=== PATIENT | male | born 1930 | race Caucasian/White ===

== ENCOUNTER → 2017-11-07 | Day surgery (SDC) | payer MEDICARE ==
[~2017-11-07] VITALS: Ht 165.1 cm; Wt 59.0 kg
[~2017-11-07] MED LIST: B12,B-12,B 12500 MC1 PO; COUMADIN PO; COUMADIN3 M1 PO; Coumadin3 MG PO; FEOSOL325 MG PO; LISINOPRIL5 MG PO; SIMVASTATIN10 MG PO; TOPROL XL25 MG PO
--- NOTE | ~2017-11-07 | O ---
[place], [place] OPERATIVE NOTE NAME: [id number] UNIT #: [id number] ROOM: DOCTOR: MIKE COMBS MD BIRTHDATE: [birth year] DOS: 11/07/2017 PREOPERATIVE DIAGNOSIS: Cataract, left eye. POSTOPERATIVE DIAGNOSIS: Cataract, left eye. OPERATION: Extracapsular cataract extraction by phacoemulsification with posterior chamber intraocular lens implantation, left eye. ANESTHESIA: Monitored standby. OPERATIVE FINDINGS AND PROCEDURE: 2% Xylocaine topical anesthetic gel was applied to the eye in the preop area. The patient was taken to the operating room and prepped and draped in the standard fashion for sterile intraocular surgery. A time out procedure was performed verifying correct patient, correct site and corrects lens with Bg Combs M.D. The operating microscope was swung into position and the lid speculum was inserted. Using a Mandy paracentesis blade, a paracentesis was made through clear cornea. Viscoelastic was used to fill the anterior chamber. Using a metal keratome a 2.4 mm self-sealing clear corneal cataract incision was made temporally at the limbus. Using a pre-bent 25 gauge cystotome needle, a standard continuous curvilinear capsulorrhexis was performed. The anterior capsule was removed with forceps. The lens nucleus was hydrodissected and phacoemulsified in the posterior chamber. Cortical material was removed with the irrigation aspiration hand piece and the posterior capsule was then polished with a curet under irrigation. The posterior chamber and capsular bag were filled with viscoelastic. A posterior chamber intraocular lens manufactured by: Ernie, Model #[id number], and 24.5 diopters in strength were then inserted into the posterior chamber and within the capsular bag using the lens cartridge and injector system. Viscoelastic was removed using the irrigation aspiration handpiece. The anterior chamber was filled with balanced salt solution through the paracentesis. Both the paracentesis site and cataract incisions were hydrated with BSS and verified to be water-tight and self-sealing. Cefuroxime 1 mg/0.1 mL was injected into the anterior chamber through the paracentesis site. The incision checked to be water-tight using a Weck-Brina sponge. The integrity of the cataract wound and ocular tension were checked. Lid speculum and drapes were removed. The patient was transferred from the operating room to the recovery room in satisfactory condition. [place], [place] OPERATIVE NOTE NAME: ANNA DOLL UNIT #: [id number] ROOM: DOCTOR: MIKE COMBS MD BIRTHDATE: [birth year] MIKE COMBS MD CM:OPRECORD:OPERATIVE NOTE [id number] MIKE COMBS MD 11/07/17 1307 interface
[2017-11-07 11:34] VITALS: BP 130/60
[2017-11-07 12:39] VITALS: BP 111/48
[2017-11-07 12:54] VITALS: BP 131/52
[2017-11-07 13:09] VITALS: BP 109/66
== END | disposition home or self-care (01) ==
LOC: SDC 11-05 09:30
DX: H25.812 Combined forms of age-related cataract, left eye (principal); I10 Essential (primary) hypertension; E78.00 Pure hypercholesterolemia, unspecified; I25.2 Old myocardial infarction; D64.9 Anemia, unspecified; Z95.5 Presence of coronary angioplasty implant and graft; Z86.73 Personal history of transient ischemic attack (TIA), and cerebral infarction without residual deficits; Z79.899 Other long term (current) drug therapy; Z79.01 Long term (current) use of anticoagulants; Z87.442 Personal history of urinary calculi; Z98.890 Other specified postprocedural states

== ENCOUNTER → 2017-11-28 | Day surgery (SDC) | payer MEDICARE ==
--- NOTE | ~2017-11-28 | O ---
[place], [place] OPERATIVE NOTE [id number] #: [id number] ROOM: DOCTOR: VIET COMBS MD BIRTHDATE: [birth year] DOS: 11/28/2017 PREOPERATIVE DIAGNOSIS: Cataract, right eye. POSTOPERATIVE DIAGNOSIS: Cataract, right eye. OPERATION: Extracapsular cataract extraction by phacoemulsification with posterior chamber intraocular lens implantation, right eye. ANESTHESIA: Monitored standby. OPERATIVE FINDINGS AND PROCEDURE: A 2% Xylocaine topical anesthetic gel was applied to the eye in the preop area. The patient was taken to the operating room and prepped and draped in the standard fashion for sterile intraocular surgery. A time out procedure was performed verifying correct patient, correct site and corrects lens with Viet Combs M.D. The operating microscope was swung into position and the lid speculum was inserted. Using a Mandy paracentesis blade, a paracentesis was made through clear cornea. Viscoelastic was used to fill the anterior chamber. Using a metal keratome a 2.4 mm self-sealing clear corneal cataract incision was made temporally at the limbus. Using a pre-bent 25 gauge cystotome needle, a standard continuous curvilinear capsulorrhexis was performed. The anterior capsule was removed with forceps. The lens nucleus was hydrodissected and phacoemulsified in the posterior chamber. Cortical material was removed with the irrigation aspiration hand piece and the posterior capsule was then polished with a curet under irrigation. The posterior chamber and capsular bag were filled with viscoelastic. A posterior chamber intraocular lens manufactured by: Ernie, Model #[id number], and 24.5 diopters in strength were then inserted into the posterior chamber and within the capsular bag using the lens cartridge and injector system. Viscoelastic was removed using the irrigation aspiration handpiece. The anterior chamber was filled with balanced salt solution through the paracentesis. Both the paracentesis site and cataract incisions were hydrated with BSS and verified to be water-tight and self-sealing. Cefuroxime 1 mg/0.1 mL was injected into the anterior chamber through the paracentesis site. The incision checked to be water-tight using a Weck-Brina sponge. The integrity of the cataract wound and ocular tension were checked. Lid speculum and drapes were removed. The patient was transferred from the operating room to the recovery room in satisfactory condition. [place], [place] OPERATIVE NOTE NAME: ANNA DOLL UNIT #: [id number] ROOM: DOCTOR: VIET COMBS MD BIRTHDATE: [birth year] VIET COMBS MD CM:OPRECORD:OPERATIVE NOTE [id number] [id number] VIET COMBS MD 11/28/17 1622 interface
[2017-11-28 11:50] VITALS: BP 116/44
[2017-11-28 13:28] VITALS: BP 134/72
[2017-11-28 13:43] VITALS: BP 135/63
[2017-11-28 13:58] VITALS: BP 131/86
== END | disposition home or self-care (01) ==
LOC: SDC 11-23 13:15
DX: H25.811 Combined forms of age-related cataract, right eye (principal); I10 Essential (primary) hypertension; I25.10 Atherosclerotic heart disease of native coronary artery without angina pectoris; I25.2 Old myocardial infarction; E78.00 Pure hypercholesterolemia, unspecified; D64.9 Anemia, unspecified; Z95.5 Presence of coronary angioplasty implant and graft; Z79.01 Long term (current) use of anticoagulants; Z79.899 Other long term (current) drug therapy; Z87.442 Personal history of urinary calculi; Z86.73 Personal history of transient ischemic attack (TIA), and cerebral infarction without residual deficits

== ENCOUNTER 2019-02-17 14:05 | Inpatient (IN) | payer MEDICARE ==
[~2019-02-17] VITALS: Ht 165.1 cm; Wt 55.9 kg
[2019-02-17 14:07] VITALS: BP 96/62
[2019-02-17 14:28] VITALS: BP 110/50
[2019-02-17 14:45] LABS: BASO % 0.6 % (0.0-1.0); EOS # 0.2 10*3/uL (0.0-0.4); HEMATOCRIT 29.8 % (42.0-52.0); HEMOGLOBIN 9.9 g/dl (14.0-18.0); LYMPH # 1.2 10*3/uL (1.3-4.4); LYMPH % 16.5 % (27.0-41.0); MEAN CORPUSCULAR HGB 30.6 pg (27.0-31.0); MEAN CORPUSCULAR HGB CONC 33.2 g/dl (33.0-37.0); MEAN PLATELET VOLUME 10.7 fl (9.6-12.3); MONO # 0.4 10*3/uL (0.1-1.0); MONO % 6.2 % (3.0-9.0); NEUT # 5.1 10*3/uL (2.3-7.9); NEUT % 73.1 % (47.0-73.0); PLATELET COUNT AUTOMATED 135 10*3/uL (130-400); RED BLOOD COUNT 3.24 10*6/uL (4.50-5.90); RED CELL DISTRI WIDTH 12.4 % (0-14.5)
[2019-02-17 15:07] LABS: INTERNATIONAL NORM RATIO 1.1 (2.0-3.5)
[2019-02-17 15:13] LABS: ALBUMIN 2.5 gm/dl (3.1-4.5); CREATININE 1.43 mg/dL (0.70-1.30); POTASSIUM 3.6 mmol/L (3.5-5.1); TOTAL PROTEIN 6.2 gm/dL (6.4-8.2)
[2019-02-17 16:00] VITALS: BP 122/58
--- NOTE | 2019-02-17 16:00 | NUR ---
FLUIDS STARTED BY OTHER RN, SANTIAGO. VERBAL ORDER TO GIVE A LITER BOLUS INSTEAD OF 125/HR PER DAREN MOORE.
--- NOTE | 2019-02-17 16:29 | NUR ---
PHOTO TAKEN OF ANTERIOR TRUNK AND POSTERIOR TRUNK. PT HAS MULTIPLE AREAS OF BLISTERED RASH... PHOTOS TAKEN.
--- NOTE | 2019-02-17 17:00 | NUR ---
PER DR. OLVERA AND THE PHYSICIAN HE SPOKE TO... RECOMMENDED TO WEAR GLOVES AND PLACE PATIENT IN NEGATIVE PRESSURE ROOM... NO OTHER ISOLATION PRECAUTIONS GIVEN OR RECOMMENDED.
--- NOTE | 2019-02-17 17:21 | NUR ---
REPORT TO ARMANDO LUTZ AT THIS TIME. PATIENT IS STABLE AND READY FOR ADMISSION/.
--- NOTE | 2019-02-17 17:30 | NUR ---
Time: 1729 A 88 year old MALE admitted to under services of RUSTY DON DO, Pt. arrived via wheel chair from ER. Chief complaint: BOLIVAR ACKERMAN
[2019-02-17] MEDS ORDERED: NORVASC5 MG PO (19:16)
[2019-02-17] MEDS ORDERED: LISINOPRIL2.5 MG PO (19:16)
[2019-02-17] MEDS ORDERED: FLOMAX0.4 MG PO (19:17)
[2019-02-17] MEDS ORDERED: CIPRO500 MG PO (19:18)
--- NOTE | 2019-02-17 19:39 | NUR ---
CALLED ANSWERING SERVICE FOR CONSULT.
--- NOTE | 2019-02-17 19:46 | NUR ---
NOTIFIED [facility] REC IS UP TO DATE.
[2019-02-17 20:00] VITALS: BP 133/64
[2019-02-18] VITALS: BP 138/60
[2019-02-18 00:50] LABS: BILIRUBIN NEGATIVE (NEGATIVE); BLOOD 3+ (NEGATIVE); CLARITY CLEAR (CLEAR); COLOR YELLOW (YELLOW); GLUCOSE NEGATIVE (NEGATIVE); KETONE NEGATIVE (NEGATIVE); LEUKO ESTERASE 1+ (NEGATIVE); NITRITE NEGATIVE (NEGATIVE); SPECIFIC GRAVITY 1.015 (1.005-1.030); UROBILINOGEN 0.2 E.U./dl (0.2-1.0)
[2019-02-18 01:04] LABS: RBC 21-30 rbc/hpf (0-2)
[2019-02-18 06:46] LABS: BASO # 0.1 10*3/uL (0.0-0.1); BASO % 0.7 % (0.0-1.0); EOS # 0.4 10*3/uL (0.0-0.4); EOS % 6.2 % (1.0-4.0); HEMATOCRIT 27.3 % (42.0-52.0); LYMPH # 1.5 10*3/uL (1.3-4.4); LYMPH % 20.6 % (27.0-41.0); MEAN CELL VOLUME 92.2 fl (80.0-94.0); MEAN CORPUSCULAR HGB 30.4 pg (27.0-31.0); MEAN PLATELET VOLUME 11.4 fl (9.6-12.3); MONO # 0.5 10*3/uL (0.1-1.0); MONO % 7.6 % (3.0-9.0); NEUT # 4.5 10*3/uL (2.3-7.9); NEUT % 64.1 % (47.0-73.0); PLATELET COUNT AUTOMATED 138 10*3/uL (130-400); RED BLOOD COUNT 2.96 10*6/uL (4.50-5.90); RED CELL DISTRI WIDTH 12.4 % (0-14.5); WHITE BLOOD COUNT 7.1 10*3/uL (4.8-10.8)
[2019-02-18 06:48] LABS: BUN 16 mg/dl (7-24); CHLORIDE 109 mmol/L (98-107); CREATININE 1.24 mg/dL (0.70-1.30); POTASSIUM 3.7 mmol/L (3.5-5.1); SODIUM 138 mmol/L (136-145)
--- NOTE | 2019-02-18 07:26 | NUR ---
ANNA DOLL [id number] Please refer to the physician's history and physical for past medical history, comorbid conditions, and allergies. Diagnosis: DISSEMINATED HERPESVIRAL DISEASE Alejo Score: 21,LOW OR NO RISK WOUND DESCRIPTIONS: Patient has several red areas with multiple papules yellow in color within the red areas. No drainage at time of assessment. Very tender to touch states it progessing since admission. #1 Right rib posterior measuring 3.5cm x 5.0cm x <0.1cm, #2 right rib anterior measuring 2.5cm x 3.5cm x <0.1cm, #3 right abdomen measuring 2.0cm x 3.0cm x <0.1cm, #4 right upper chest measuring 3.0cm x 3.0cm x <0.1cm, #5 midsternal 2.5cm x 1.5cm x <0.1cm, #6 right chest measuring 1.0cm x 3.0cm x <0.1cm, #7 left upper chest measuring 2.0cm x 2.0cm x <0.1cm, #8 left rib measuring 1.0cm x 4.5cm x <0.1cm, #10 back of left shoulder measuring 2.5cm x 4.0cm x <0.1cm, #11 middle back measuring 3.0cm x 3.0cm x <0.1cm, #12 left shoulder measuring 8.5cm x 2.0cm x <0.1cm, #13 right clavicle measuring 4.0cm x 3.5cm x <0.1cm, #14 left clavicle measuring 3.0cm x 2.5cm x <0.1cm, #15 left chin measuring 4.5cm x 2.0cm x <0.1cm, #16 left corner of mouth measuring 0.5cm x 1.0cm x <0.1cm, #17 middle of bottom lip measuring 1.5cm x 2.0cm x <0.1cm, #18 right cornor of mouth measuring 0.5cm x 1.0cm x <0.1cm, #19 bridge of nose measuring 1.0cm x 1.5cm x <0.1cm and #20 inside of left ear measuring 1.5cm x 1.0cm x <0.1cm. Wound Number: 9 Location of the wound: left inner thigh Thickness: Partial Size: 0.5cm x 1.5cm x 0.1cm Tunneling: none Undermining: none Sinus Tract: none Presence of Exudate: Serous Amount: Light Color: Red Odor: None Periwound Skin Appearance: Normal Wound edges: approximated Pain (associated with wound): none at time of assessment How does patient state this happened? pt stated this was from where the had the catheter attached to his leg in the previous hospital. Surface the patient is resting on: Isoflex SKIN PREVENTION RECOMMENDATION: 1. Pressure redistribution support surface as appropriate 2. Elevate heels 3. Remove boots/TEDS every shift and reapply 4. Head of bed 30 degrees as tolerated 5. Assess nutrition and hydration 6. Manage moisture 7. Avoid the use of containment devices while in bed 8. Use absorptive products on surfaces limit layers of linens on bed 9. Turn and reposition every 1-2 hours in bed and every 1 hour in chair as tolerated 10. Weight shifts every 15 minutes while up in chair 11. Offloading with pillows or device to keep heels elevated off bed 12. Monitor skin at least every shift 13. Inspect under medical devices twice a day WOUND TREATMENT RECOMMENDATIONS: Partial thickness guidelines: Cleanse left inner thigh with nss and apply sureprep around the wound hydrogel to wound bed and cover with optifoam gentle. ID is already on consult for rash.
--- NOTE | 2019-02-18 07:43 | NUR ---
ANNA DOLL [id number] Please refer to the physician's history and physical for past medical history, comorbid conditions, and allergies. Diagnosis: DISSEMINATED HERPESVIRAL DISEASE Alejo Score: 21,LOW OR NO RISK WOUND DESCRIPTIONS: Patient has several red areas with yellow papules noted to several areas over body. Patient is complaining of pain at time of assessment. No drainage noted at time of assessment. #1 right rib posterior measuring 3.5cm x 5.0cm x <0.1cm, #2 right rib anterior 2.5cm x 3.5cm x <0.1cm, #3 right abdomen measuring 2.0cm x 3.0cm x <0.1cm, #4 right upper chest measuring 3.0cm x 3.0cm x <0.1cm, #5 midsternal measuring 2.5cm x 1.5cm x <0.1cm, #6 right chest measuring 1.0cm x 3.0cm x <0.1cm, #7 left upper chest measuring 2.0cm x 2.0cm x <0.1cm, #8 left rib measuring 1.0cm x 4.5cm x <0.1cm, #10 back of left shoulder measuring 2.5cm x 4.0cm x <0.1cm, #11 middle back measuring 3.0cm x 3.0cm x <0.1cm, #12 left shoulder measuring 8.5cm x 2.0cm x <0.1cm, #13 right clavicle measuring 4.0cm x 3.5cm x <0.1cm, #14 left clavicle measuring 3.0cm x 2.5cm x <0.1cm, #15 left chin measuring 4.5cm x 2.0cm x <0.1cm, #16 left corner of mouth measuring 0.5cm x 1.0cm x <0.1cm, #17 middle of bottom lip measuring 1.5cm x 2.0cm x <0.1cm, #18 right corner of mouth measuring 0.5cm x 1.0cm x <0.1cm, #19 bridge of nose measuring 1.0cm x 1.5cm x <0.1cm, #20 inside of left ear measuring 1.5cm x 1.0cm x <0.1cm. Wound Number: 9 Location of the wound: left inner thigh Thickness: Partial Size: 0.5cm x 1.5cm x 0.1cm Tunneling: none Undermining: none Sinus Tract: none Presence of Exudate: Serous Amount: Light Color: Red Odor: None Periwound Skin Appearance: Normal Wound edges: approximated Pain (associated with wound): none at time of assessment How does patient state this happened? pt stated this happened during his last hospital stay from the catheter. Surface the patient is resting on: Isoflex SKIN PREVENTION RECOMMENDATION: 1. Pressure redistribution support surface as appropriate 2. Elevate heels 3. Remove boots/TEDS every shift and reapply 4. Head of bed 30 degrees as tolerated 5. Assess nutrition and hydration 6. Manage moisture 7. Avoid the use of containment devices while in bed 8. Use absorptive products on surfaces limit layers of linens on bed 9. Turn and reposition every 1-2 hours in bed and every 1 hour in chair as tolerated 10. Weight shifts every 15 minutes while up in chair 11. Offloading with pillows or device to keep heels elevated off bed 12. Monitor skin at least every shift 13. Inspect under medical devices twice a day WOUND TREATMENT RECOMMENDATIONS: Id is already on consult for rash Partial thickness guidelines: Cleanse left inner thigh with nss and apply sureprep around the wound hydrogel to wound bed and cover with optifoam gentle.
[2019-02-18 08:00] VITALS: BP 130/58
--- NOTE | 2019-02-18 08:05 | NUR ---
Dr. Mcclain notified of wound care recommendations.
--- NOTE | 2019-02-18 08:45 | NUR ---
Nursing screen and occupational therapy referral received. Thank you. Abbi Castro OTR/l
[2019-02-18 10:06] LABS: INTERNATIONAL NORM RATIO 1.2 (2.0-3.5)
[2019-02-18 12:00] VITALS: BP 137/65
--- NOTE | 2019-02-18 13:36 | NUR ---
PHYSICAL THERAPY Physical therapy evaluation attempted however inadequate PPE equipment available. Will attempt tomorrow. Thank you Peg Willis, PT, DPT
--- NOTE | 2019-02-18 14:21 | NUR ---
Sales Floor Manager in to talk to patient. Patient states lives at home with . There are few steps in the home. Physician: quiana [facility] [place] [facility]: none Patient's level of ADLs: MINIMAL ASSIST Patient has working utilities: all working DME: none Follow-up physician's appointment after d/c: will be made by hospsitalist nurse director upon discharge Does patient want to access PORTAL?: no Discharge plan discussed with patient, he lives at home with , states he gets aroun fine, states at this time he would like to return home, denies any needs at this time, case mangaement will follow. JAIMIE MCMILLAN
--- NOTE | 2019-02-18 15:20 | NUR ---
Occupational Therapy evaluation to be completed 02/19/19. OTR received clarification on respiratory isolation precautions equipment and will proceed 02/19/19. Abbi Castro OTR/Nestor
[2019-02-18 16:00] VITALS: BP 124/63
[2019-02-18 20:00] VITALS: BP 124/62
[2019-02-19] VITALS: BP 131/62
[2019-02-19 04:00] VITALS: BP 141/78
[2019-02-19 06:31] LABS: PHOSPHOROUS 3.2 mg/dL (2.5-4.9)
[2019-02-19 06:34] LABS: INTERNATIONAL NORM RATIO 1.1 (2.0-3.5)
[2019-02-19 08:00] VITALS: BP 118/61
--- NOTE | 2019-02-19 09:19 | NUR ---
[facility] CALLED FOR [facility] SPOKE WITH STAFF. MED LIST TO BE FAXED OVER.
[2019-02-19] MEDS ORDERED: B-12500 MC1 PO (09:37)
[2019-02-19] MEDS ORDERED: ZANTAC 150150 MG PO (09:38)
--- NOTE | 2019-02-19 09:46 | NUR ---
[facility] VERIF[facility] WITH [facility] AND [facility]. DR AGUILAR NOTIFIED.
--- NOTE | 2019-02-19 09:58 | NUR ---
WENT TO DOCUMENT ON NEGATIVE AIR PRESSURE READING AND NOTICED OTOOLE DIRECTION IS TO NEUTRAL NOT NEGATIVE. SPOKE WITH CONSTANCE IRVIN, SHE STATES PT DOES NOT NEED TO BE IN NEGATIVE AIR PRESSURE.
--- NOTE | 2019-02-19 10:55 | NUR ---
DR VELIZ CONSULT CALLED TO THE OFFICE
--- NOTE | 2019-02-19 11:15 | NUR ---
Occupational Therapy evaluation completed on 4 with full eval to follow. Precautions include IV UE, no dizziness per patient, low complexity level 80572. Per chart review, patient was not taking her medications correctly and she may benefit from longterm for medication management in the home upon d/c. No further OT indicated.Recommend return home alone at prior level of functioning. Thank you. Abbi Castro OTR/L
--- NOTE | 2019-02-19 11:25 | NUR ---
Occupational Therapy evaluation completed on 4 with patient in respiratory isolation for disseminated shingles. Precautions include respiratory isolation, IV UE, low complexity level 40178. Recommend return home alone at prior level of independence. Patient uses no assistive device in the home. Recommend no further OT at this time or upon d/c. Thank you. Abbi Castro OTr/L
[2019-02-19 12:00] VITALS: BP 142/56
--- NOTE | 2019-02-19 13:55 | NUR ---
PHYSICAL THERAPY Physical therapy evaluation completed, 4E. Full details to follow. Low complexity determined after chart review/evaluation, [address]. Pt is independent with ambulation and ADLs without an AD; Does not require any PT needs. Recommending home with no PT needs. Thank you Peg Willis, PT, DPT
[2019-02-19 16:00] VITALS: BP 116/54
--- NOTE | 2019-02-19 16:58 | NUR ---
NASIR CALLED AND NOTIFIED OF -0.003 PRESSURE. STAFF UP TO LOOK AT IT. STATES IT'S OK.
[2019-02-19 20:00] VITALS: BP 101/61
--- NOTE | 2019-02-19 20:50 | NUR ---
Neurological: AAOX3 Respiratory: ROOM AIR, NONLABORED Breath sounds: CLEAR T/O Cough: NONE PER ASSESSMENT Cardiovascular: HRR, DENIES CP/PRESSURE, NO EDEMA, PPP Gastrointestinal: NORMOACTIVE X4 QUADS, DENIES N/V/D/C, SOFT, NONTENDER, NONDISTENDED LAST BM 02/19. Genito/Urinary: DENIES DYSURIA Musculoskeketal: AMBULATORY, MULTIPLE WOUNDS D/T CONDITION PATIENT IS RESTING IN BED. ASSESSMENT IS COMPLETE WITH NO C/O OR S/S OF DISTRESS NOTED. BED IS LOW, LOCKED, AND CALL LIGHT IS WITHIN REACH. 2200 MEDICATIONS GIVEN AT THIS TIME AND PATIENT TOLERATED WELL. JOAQUÍN COMBS A
[2019-02-20] VITALS: BP 110/64
--- NOTE | 2019-02-20 | NUR ---
PATIENT IS WATCHING TV WITH NO C/O OR S/S OF DISTRESS NOTED AT THIS TIME. CALL LIGHT IS WITHIN REACH.
--- NOTE | 2019-02-20 02:00 | NUR ---
FRESH ICEWATER PROVIDED TO PATIENT. NO S/S OF DISTRESS NOTED AT THIS TIME.
--- NOTE | 2019-02-20 06:15 | NUR ---
WARM BLANKETS AND FRESH ICE WATER PROVIDED TO PATIENT AT THIS TIME. NO S/S OF DISTRESS NOTED.
[2019-02-20 08:00] VITALS: BP 142/68
[2019-02-20 08:18] LABS: INTERNATIONAL NORM RATIO 1.3 (2.0-3.5)
[2019-02-20 12:00] VITALS: BP 112/57
[2019-02-20 16:00] VITALS: BP 112/57
[2019-02-20 20:00] VITALS: BP 113/56
--- NOTE | 2019-02-20 23:30 | NUR ---
Neurological: AAOX3 Respiratory: ROOM AIR, NONLABORED Breath sounds: CLEAR T/O Cough: NONE PER ASSESSMENT Cardiovascular: DENIES CP/PRESSURE, NO EDEMA, PPP Gastrointestinal: NORMOACTIVE X4 QUADS, DENIES N/V/D/C, SOFT, NONTENDER, NONDISTENDED Genito/Urinary: DENIES DYSURIA Musculoskeketal: AMBULATORY, GAIT STEADY, ALL OVER RASH PATIENT IS RESTING IN BED WATCHING TV. ASSESSMENT IS COMPLETE WITH NO S/S OF DISTRESS OR C/O NOTED AT THIS TIME. BED IS LOW, LOCKED, AND CALL LIGHT IS WITHIN REACH. JOAQUÍN COMBS
[2019-02-21] VITALS: BP 111/53
--- NOTE | 2019-02-21 01:53 | NUR ---
24 HR chart check completed.
--- NOTE | 2019-02-21 05:30 | NUR ---
PATIENT IS SITTING IN CHAIR WITH NO C/O OR S/S OF DISTRESS NOTED AT THIS TIME. CALL LIGHT IS WITHIN REACH.
[2019-02-21 07:24] LABS: INTERNATIONAL NORM RATIO 1.5 (2.0-3.5)
--- NOTE | 2019-02-21 07:30 | NUR ---
PT AWAKE. REPORT RECEIVED FROM JOAQUÍN ROBERTS. NO PT QUESTIONS/CONCERNS AT THIS TIME. CALL RODRIGUEZ IN REACH
[2019-02-21 08:00] VITALS: BP 120/53
--- NOTE | 2019-02-21 09:10 | NUR ---
PT AWAKE. ASSESSMENT COMPLETE. ROUTINE MEDICATIONS WELL TOLERATED. NO PT QUESTIONS/CONCERNS AT THIS TIME
[2019-02-21 12:00] VITALS: BP 114/50
--- NOTE | 2019-02-21 13:00 | NUR ---
PT AWAKE. EATING LUNCH. FAMILY VISITING AT THE BEDSIDE.
--- NOTE | 2019-02-21 13:43 | NUR ---
case management talks with patient, he states he will return home when medically stable and denies any home needs, case management will follow
[2019-02-21 16:00] VITALS: BP 126/64
[2019-02-21 16:29] LABS: CREATININE 1.38 mg/dL (0.70-1.30); POTASSIUM 4.3 mmol/L (3.5-5.1)
[2019-02-21 20:00] VITALS: BP 104/60
--- NOTE | 2019-02-21 22:00 | NUR ---
DOUG HELD PER NURSING JUDGEMENT FOR BP OF 104/60
[2019-02-22] VITALS: BP 120/49
--- NOTE | 2019-02-22 01:08 | NUR ---
24 HR chart check completed.
[2019-02-22 06:47] LABS: BUN 21 mg/dl (7-24); CHLORIDE 108 mmol/L (98-107); SODIUM 138 mmol/L (136-145)
[2019-02-22 08:00] VITALS: BP 123/67
[2019-02-22 08:45] LABS: INTERNATIONAL NORM RATIO 1.9 (2.0-3.5)
[2019-02-22 12:00] VITALS: BP 101/42
[2019-02-22 16:00] VITALS: BP 108/59
[2019-02-22 20:00] VITALS: BP 106/59
--- NOTE | 2019-02-22 21:27 | NUR ---
HELD DOUG PER NURSING JUDGMENT FOR BP 106/59.
[2019-02-23] VITALS: BP 104/63
--- NOTE | 2019-02-23 02:20 | NUR ---
24 HOUR CHART CHECK COMPLETE.
--- NOTE | 2019-02-23 02:47 | NUR ---
Patient sleeping. Respirations relaxed and easy. Siderails up . [place] on. No signs of distress noted. Call light within reach. BOLIVAR BARKER
[2019-02-23 07:00] LABS: CREATININE 1.39 mg/dL (0.70-1.30); POTASSIUM 4.3 mmol/L (3.5-5.1)
[2019-02-23 08:00] VITALS: BP 147/64
--- NOTE | 2019-02-23 08:04 | NUR ---
PT RESTING IN BED. NO DISTRESS NOTED. WILL MONITOR
[2019-02-23] MEDS ORDERED: COUMADIN5 M2 PO (11:10)
[2019-02-23] MEDS ORDERED: K-PHOS500 MG PO (11:10)
[2019-02-23] MEDS ORDERED: Isordil20 MG PO (11:10)
[2019-02-23] MEDS ORDERED: APRESOLINE10 MG PO (11:10)
--- NOTE | 2019-02-23 11:10 | NUR ---
DR MONTAGUE CALLED REGARDING PT BEING BALE TO BE DC'D. DR MONTAGUE STATES THAT PT CAN GO IF PRESCRIPTION VALTREX IS ABLE TO BE FILLED TODAY DR ALAYNA MISHRA
[2019-02-23] MEDS ORDERED: VALACYCLOVIR H500 MG PO (11:11)
--- NOTE | 2019-02-23 13:55 | NUR ---
Discharge instructions reviewed with patient/family. Patient receptive and verbalizes understanding. Follow-up care arranged. Written instructions given to patient/family. QUEENIE RAINEY
--- NOTE | 2019-02-23 13:55 | NUR ---
PT REFUSED DC WOUND PHOTOS
== END 2019-02-23 14:20 | disposition home or self-care (01) | DRG 871 ==
LOC: ED 14:05 → EDHOLD 16:10 → 4E 16:10
PROVIDERS: Internal Medicine; Physician Assistant; Student in an Organized Health Care Education/Training Program; ADMIT Internal Medicine
DX: B00.7 Disseminated herpesviral disease (principal); E43 Unspecified severe protein-calorie malnutrition; I13.0 Hypertensive heart and chronic kidney disease with heart failure and stage 1 through stage 4 chronic kidney disease, or unspecified chronic kidney disease; I50.9 Heart failure, unspecified; D64.9 Anemia, unspecified; D72.810 Lymphocytopenia; E11.22 Type 2 diabetes mellitus with diabetic chronic kidney disease; B02.7 Disseminated zoster; E11.65 Type 2 diabetes mellitus with hyperglycemia; E87.8 Other disorders of electrolyte and fluid balance, not elsewhere classified; N18.3 Chronic kidney disease, stage 3 (moderate); I25.10 Atherosclerotic heart disease of native coronary artery without angina pectoris; Z82.49 Family history of ischemic heart disease and other diseases of the circulatory system; E78.5 Hyperlipidemia, unspecified; I25.2 Old myocardial infarction; Z86.73 Personal history of transient ischemic attack (TIA), and cerebral infarction without residual deficits; Z79.4 Long term (current) use of insulin; Z79.01 Long term (current) use of anticoagulants; Z68.21 Body mass index [BMI] 21.0-21.9, adult

== ENCOUNTER → 2019-02-26 | Outpatient (CLI) | payer MEDICARE ==
[~2019-02-26] MED LIST changes: +APRESOLINE10 MG PO; +B-12500 MC1 PO; +CIPRO500 MG PO; +COUMADIN5 M2 PO; +FLOMAX0.4 MG PO; +Isordil20 MG PO; +K-PHOS500 MG PO; +LISINOPRIL2.5 MG PO; +NORVASC5 MG PO; +VALACYCLOVIR H500 MG PO; +ZANTAC 150150 MG PO
[2019-02-26 12:48] LABS: INTERNATIONAL NORM RATIO 4.7 (2.0-3.5)
== END | disposition home or self-care (01) ==
LOC: LAB 10:27
PROVIDERS: Internal Medicine
DX: Z51.81 Encounter for therapeutic drug level monitoring (principal); R79.1 Abnormal coagulation profile

== ENCOUNTER → 2019-03-01 | Outpatient (CLI) | payer MEDICARE ==
[2019-03-01 06:23] LABS: INTERNATIONAL NORM RATIO 1.9 (2.0-3.5)
== END | disposition home or self-care (01) ==
LOC: LAB 05:13
PROVIDERS: Family Medicine
DX: I25.10 Atherosclerotic heart disease of native coronary artery without angina pectoris (principal)

== ENCOUNTER 2019-03-25 08:37 | Inpatient (IN) | payer OTHER ==
[~2019-03-25] VITALS: Ht 165.1 cm; Wt 58.3 kg
[2019-03-25 08:38] VITALS: BP 142/62
[2019-03-25 09:14] LABS: BASO % 0.5 % (0.0-1.0); EOS # 0.3 10*3/uL (0.0-0.4); EOS % 4.1 % (1.0-4.0); HEMOGLOBIN 9.7 g/dl (14.0-18.0); LYMPH # 1.6 10*3/uL (1.3-4.4); MEAN CELL VOLUME 95.5 fl (80.0-94.0); MEAN CORPUSCULAR HGB 30.9 pg (27.0-31.0); MEAN CORPUSCULAR HGB CONC 32.3 g/dl (33.0-37.0); MONO # 0.5 10*3/uL (0.1-1.0); MONO % 8.1 % (3.0-9.0); NEUT # 3.7 10*3/uL (2.3-7.9); NEUT % 60.8 % (47.0-73.0); PLATELET COUNT AUTOMATED 168 10*3/uL (130-400); RED BLOOD COUNT 3.14 10*6/uL (4.50-5.90); RED CELL DISTRI WIDTH 14.4 % (0-14.5); WHITE BLOOD COUNT 6.1 10*3/uL (4.8-10.8)
[2019-03-25 09:16] LABS: BILIRUBIN NEGATIVE (NEGATIVE); BLOOD 2+ (NEGATIVE); CLARITY CLOUDY (CLEAR); COLOR YELLOW (YELLOW); GLUCOSE NEGATIVE (NEGATIVE); KETONE NEGATIVE (NEGATIVE); LEUKO ESTERASE 2+ (NEGATIVE); NITRITE NEGATIVE (NEGATIVE); PH 5.5 (5.0-9.0); UROBILINOGEN 0.2 E.U./dl (0.2-1.0)
--- NOTE | 2019-03-25 09:19 | NUR ---
IONIZED CALCIUM CRITICAL AT 3.04 AND REGULAR IS STILL IN PROCESS.
[2019-03-25 09:27] LABS: ALBUMIN 3.1 gm/dl (3.1-4.5); CREATININE 1.81 mg/dL (0.70-1.30); POTASSIUM 3.8 mmol/L (3.5-5.1); TOTAL PROTEIN 6.4 gm/dL (6.4-8.2)
[2019-03-25 09:29] LABS: WBC TNTC wbc/hpf (0-5)
[2019-03-25 09:30] LABS: INTERNATIONAL NORM RATIO 2.3 (2.0-3.5)
[2019-03-25 09:33] LABS: BACTERIA 2+; RBC 21-30 rbc/hpf (0-2); YEAST 2+
--- NOTE | 2019-03-25 11:09 | NUR ---
I SPOKE TO HIS NIECE, EDY, WHO IS HIS POWER OF REFRIGERATOR CAR ICER. I EXPLAINED THAT HIS MAGNESIUM AND CALCIUM LEVELS WERE LOW AND IT WAS IMPORTANT THE PT BE ADMITTED TO HAVE FURTHER LABS DRAWN AND TO GET PROPER MEDICATION.
[2019-03-25 11:10] VITALS: BP 132/55
--- NOTE | 2019-03-25 11:50 | NUR ---
DR. BOURNE WAS NOTIFIED THAT PATIENT IS IN THE ROOM AND MED REC IS UP-TO-DATE. PATIENT CONDITION REVIEWED.
[2019-03-25 12:00] VITALS: BP 132/55
--- NOTE | 2019-03-25 12:29 | NUR ---
DR. STRAUSS NOTIFIED OF CONSULT. PATIENT CONDITION AND LAB RESULTS REVIEWED. ORDERS RECEIVED.
[2019-03-25 13:23] LABS: PTH INTACT 107.5 pg/mL (18.5-88.0); VITAMIN D, 25-HYDROXY 31.4 ng/mL (30-100)
[2019-03-25 16:00] VITALS: BP 131/72
--- NOTE | 2019-03-25 19:44 | NUR ---
PATIENT RESTING IN BED WITH NO NEEDS MADE. DENIES PAIN AT THIS TIME. BED IN LOWEST POSITION, CALL LIGHT IN REACH
[2019-03-25 20:00] VITALS: BP 136/67
[2019-03-26] VITALS: BP 139/67
[2019-03-26 06:21] LABS: ALBUMIN 2.9 gm/dl (3.1-4.5); POTASSIUM 4.1 mmol/L (3.5-5.1)
[2019-03-26 06:23] LABS: CREATININE 1.69 mg/dL (0.70-1.30); FREE T4 0.98 ng/dl (0.76-1.46); PHOSPHOROUS 3.3 mg/dL (2.5-4.9); TOTAL PROTEIN 6.5 gm/dL (6.4-8.2)
[2019-03-26 06:27] LABS: THYROID STIM HORMONE (HS) 1.47 uIU/ml (0.358-4.75)
[2019-03-26 06:31] LABS: BASO % 0.6 % (0.0-1.0); EOS # 0.4 10*3/uL (0.0-0.4); EOS % 5.9 % (1.0-4.0); HEMATOCRIT 30.3 % (42.0-52.0); LYMPH # 1.7 10*3/uL (1.3-4.4); LYMPH % 23.6 % (27.0-41.0); MEAN CELL VOLUME 93.8 fl (80.0-94.0); MEAN PLATELET VOLUME 12.2 fl (9.6-12.3); MONO # 0.5 10*3/uL (0.1-1.0); NEUT # 4.4 10*3/uL (2.3-7.9); NEUT % 62.6 % (47.0-73.0); PLATELET COUNT AUTOMATED 187 10*3/uL (130-400); RED BLOOD COUNT 3.23 10*6/uL (4.50-5.90); RED CELL DISTRI WIDTH 14.2 % (0-14.5)
--- NOTE | 2019-03-26 06:32 | NUR ---
NOTIFIED OF CALCIUM 6.8, UP FROM 6.4.
[2019-03-26 06:49] LABS: VITAMIN D, 25-HYDROXY 36.2 ng/mL (30-100)
--- NOTE | 2019-03-26 07:58 | NUR ---
PHYSICAL THERAPY Screen received 88 y/o M admitted with UTI/hypocalcemia from home, please consulut PT for evaluation if decline in function/ambulation, thank you. Clementina Garcia PT
--- NOTE | 2019-03-26 08:00 | NUR ---
Water Plant Pump Operator Supervisor in to talk to patient. Patient states lives at home alone with his family checking in on him. There are basement steps in the home. Physician: Dr. Esau Gan [facility]acy: [facility] [place] Home health services: none Patient's level of ADLs: INDEPENDENT Patient has working utilities: yes DME: none Follow-up physician's appointment after d/c: will be made by the hospitalist nurse director upon discharge Does patient want to access PORTAL?: no Discharge plan discussed with patient. He lives at home alone with his family checking in on him. He is independent in his ADLs and ambulation. Discussed home health care services and he denies any home needs at this time. When medically stable he will be discharged to home. He states his niece will provide transportation on discharge. UA +, UC + heavy GPC, on rocephin, Ca 6.8 up from 5.5. ERICKSON ZHANG
[2019-03-26 12:00] VITALS: BP 152/80
--- NOTE | 2019-03-26 12:05 | NUR ---
[facility]
--- NOTE | 2019-03-26 14:07 | NUR ---
PT RETURNED FROM RENAL US.
--- NOTE | 2019-03-26 15:07 | NUR ---
Nursing screen received and chart reviewed. Patient admitted for abnormal labs with a PMH including cAD, CHF, HLD, and TIA. If patient has a decline in ADLs or functional mobility/transfers, send OT referral. Thank you. Maria D Bennett OTR/L
[2019-03-26] MEDS ORDERED: Oscal,Oyster S500 MG PO (15:16)
[2019-03-26] MEDS ORDERED: LEVAQUIN500 M2 PO (15:20)
[2019-03-26 16:00] VITALS: BP 158/69
--- NOTE | 2019-03-26 16:26 | NUR ---
PT OFF FLOOR FOR CT AT THIS TIME.
--- NOTE | 2019-03-26 19:41 | NUR ---
Discharge instructions reviewed with patient/family. Patient receptive and verbalizes understanding. Follow-up care arranged. Written instructions given to patient/family. RITO WHITLOCK
== END 2019-03-26 19:41 | disposition home or self-care (01) | DRG 640 ==
LOC: ED 08:37 → EDHOLD 10:17 → 4E 10:17
PROVIDERS: Emergency Medicine; Internal Medicine; ADMIT Internal Medicine
DX: E83.51 Hypocalcemia (principal); N17.0 Acute kidney failure with tubular necrosis; N13.6 Pyonephrosis; I50.42 Chronic combined systolic (congestive) and diastolic (congestive) heart failure; E44.0 Moderate protein-calorie malnutrition; I13.0 Hypertensive heart and chronic kidney disease with heart failure and stage 1 through stage 4 chronic kidney disease, or unspecified chronic kidney disease; N40.0 Benign prostatic hyperplasia without lower urinary tract symptoms; D64.9 Anemia, unspecified; E83.42 Hypomagnesemia; R00.1 Bradycardia, unspecified; R73.9 Hyperglycemia, unspecified; E78.5 Hyperlipidemia, unspecified; I25.10 Atherosclerotic heart disease of native coronary artery without angina pectoris; N18.2 Chronic kidney disease, stage 2 (mild); E87.8 Other disorders of electrolyte and fluid balance, not elsewhere classified; Z87.442 Personal history of urinary calculi; I25.2 Old myocardial infarction; Z86.73 Personal history of transient ischemic attack (TIA), and cerebral infarction without residual deficits; Z95.5 Presence of coronary angioplasty implant and graft; Z82.49 Family history of ischemic heart disease and other diseases of the circulatory system; Z83.3 Family history of diabetes mellitus; Z79.899 Other long term (current) drug therapy; Z79.01 Long term (current) use of anticoagulants; Z68.21 Body mass index [BMI] 21.0-21.9, adult

== ENCOUNTER 2019-04-08 17:36 | Inpatient (IN) | payer MEDICARE ==
[~2019-04-08] VITALS: Ht 165.1 cm; Wt 56.0 kg
[2019-04-08 17:36] VITALS: BP 115/54
[~2019-04-08 17:36] MED LIST changes: +LEVAQUIN500 M2 PO; +Oscal,Oyster S500 MG PO
[2019-04-08 18:17] LABS: BASO % 0.6 % (0.0-1.0); EOS # 0.4 10*3/uL (0.0-0.4); EOS % 7.4 % (1.0-4.0); HEMATOCRIT 30.2 % (42.0-52.0); HEMOGLOBIN 9.6 g/dl (14.0-18.0); LYMPH # 1.4 10*3/uL (1.3-4.4); LYMPH % 28.8 % (27.0-41.0); MEAN CELL VOLUME 94.4 fl (80.0-94.0); MEAN CORPUSCULAR HGB CONC 31.8 g/dl (33.0-37.0); MEAN PLATELET VOLUME 9.8 fl (9.6-12.3); MONO # 0.4 10*3/uL (0.1-1.0); MONO % 8.1 % (3.0-9.0); NEUT # 2.6 10*3/uL (2.3-7.9); NEUT % 54.7 % (47.0-73.0); PLATELET COUNT AUTOMATED 232 10*3/uL (130-400); RED CELL DISTRI WIDTH 13.6 % (0-14.5); WHITE BLOOD COUNT 4.7 10*3/uL (4.8-10.8)
[2019-04-08 18:26] LABS: INTERNATIONAL NORM RATIO 2.6 (2.0-3.5)
[2019-04-08 18:35] LABS: ALBUMIN 3.1 gm/dl (3.1-4.5); ALKALINE PHOSPHATASE 96 U/L (45-117); BUN 37 mg/dl (7-24); CHLORIDE 108 mmol/L (98-107); CREATININE 2.39 mg/dL (0.70-1.30); POTASSIUM 5.3 mmol/L (3.5-5.1); SGOT/AST 27 IU/L (3-35); SGPT/ALT 33 U/L (12-78); SODIUM 138 mmol/L (136-145); TOTAL PROTEIN 6.8 gm/dL (6.4-8.2)
[2019-04-08 18:37] LABS: TROPONIN I < 0.015 ng/ml (<0.045)
[2019-04-08 18:55] LABS: BILIRUBIN NEGATIVE (NEGATIVE); BLOOD 1+ (NEGATIVE); CLARITY SL CLOUDY (CLEAR); COLOR YELLOW (YELLOW); GLUCOSE NEGATIVE (NEGATIVE); KETONE NEGATIVE (NEGATIVE); LEUKO ESTERASE 2+ (NEGATIVE); NITRITE NEGATIVE (NEGATIVE); UROBILINOGEN 0.2 E.U./dl (0.2-1.0)
[2019-04-08 19:04] LABS: BACTERIA 1+; WBC 41-50 wbc/hpf (0-5)
[2019-04-08 20:22] VITALS: BP 136/62
[2019-04-08 21:32] VITALS: BP 138/54
--- NOTE | 2019-04-08 21:32 | NUR ---
Time: 2131 A 88 year old MALE admitted to under services of ANTONIA GONZALEZ DO. Pt. arrived via wheel chair from ER. Chief complaint: ABNORMAL LABS. ANGELICA MEYER
--- NOTE | 2019-04-08 22:12 | NUR ---
PRESENT ON FLOOR. INFORMED HOME MEDS ARE VERIFIED
[2019-04-09] VITALS: BP 155/68
[2019-04-09 06:56] LABS: BASO % 0.5 % (0.0-1.0); EOS # 0.5 10*3/uL (0.0-0.4); EOS % 7.9 % (1.0-4.0); HEMATOCRIT 31.4 % (42.0-52.0); LYMPH % 33.4 % (27.0-41.0); MEAN CORPUSCULAR HGB 29.9 pg (27.0-31.0); MEAN CORPUSCULAR HGB CONC 31.8 g/dl (33.0-37.0); MEAN PLATELET VOLUME 10.1 fl (9.6-12.3); MONO # 0.4 10*3/uL (0.1-1.0); MONO % 7.4 % (3.0-9.0); NEUT % 50.6 % (47.0-73.0); PLATELET COUNT AUTOMATED 253 10*3/uL (130-400); RED BLOOD COUNT 3.34 10*6/uL (4.50-5.90); RED CELL DISTRI WIDTH 13.8 % (0-14.5); WHITE BLOOD COUNT 5.9 10*3/uL (4.8-10.8)
[2019-04-09 07:22] LABS: ALBUMIN 3.1 gm/dl (3.1-4.5); CREATININE 2.36 mg/dL (0.70-1.30); PHOSPHOROUS 3.7 mg/dL (2.5-4.9); POTASSIUM 4.9 mmol/L (3.5-5.1); TOTAL PROTEIN 7.1 gm/dL (6.4-8.2)
[2019-04-09 07:27] LABS: INTERNATIONAL NORM RATIO 2.3 (2.0-3.5); THYROID STIM HORMONE (HS) 2.61 uIU/ml (0.358-4.75)
--- NOTE | 2019-04-09 07:53 | NUR ---
VITALS STABLE. SKIN WARM, DRY, PINK AND INTACT. JAIME, CAPILLARY REFILL <3 SEC. A&O X3, + PERIPHERAL PULSES. NO COMPLAINTS OF PAIN AT THIS TIME. HEART SOUNDS NORMAL, RATE OF 66, STRONG. LUNG SOUNDS CLEAR THROUGHOUT, RATE 16. PO2 97% ON RA. HYPERACTIVE BOWEL SOUNDS X4, ABDOMEN SOFT, NON-DISTENDED, NON-TENDER. RIGHT FOREARM IV SITE DRY AND INTACT, NO S/S OF INFECTION. NO OTHER COMPLAINTS AT THIS TIME, WILL CONTINUE TO MONITOR. OLGA GILLCC
--- NOTE | 2019-04-09 07:55 | NUR ---
Spoke to Sarita at the [facility]. Patient has no travel benefits.
[2019-04-09 08:00] VITALS: BP 128/64
--- NOTE | 2019-04-09 08:00 | NUR ---
PT RESTING IN BED. NO DISTRESS NOTED. WILL MONITOR
[2019-04-09 08:01] LABS: VITAMIN D, 25-HYDROXY 48.6 ng/mL (30-100)
--- NOTE | 2019-04-09 10:10 | NUR ---
PT RESTING COMFORTABLY IN BED WATCHING TV. NO COMPLAINTS AT THIS TIME, WILL CONTINUE TO MONITOR. WILLA GILL
--- NOTE | 2019-04-09 11:07 | NUR ---
WAS IN TO SEE PT. RESTING IN BED. NO COMPLAINTS. WILL CONTINUE TO MONITOR. AUBREY AMBRIZ SPSHEILACC
[2019-04-09 12:00] VITALS: BP 118/69; BP 124/59
--- NOTE | 2019-04-09 12:03 | NUR ---
DR STRAUSS CALLED AND NOTIFIED OF CONSULT
--- NOTE | 2019-04-09 12:33 | NUR ---
DR STRAUSS HERE TO SEE PT
--- NOTE | 2019-04-09 13:26 | NUR ---
Screen Printer in to talk to patient. Patient states lives at HOME with ALONE. There are BASEMENT steps in the home. Physician: TRAV Pharmacy: [facility] health services: NONE Patient's level of ADLs: INDEPENDENT Patient has working utilities: YES DME: NONE Follow-up physician's appointment after d/c: WILL BE MADE BY HOSPITALIST NURSE DIRECTOR ON DISCHARGE Does patient want to access PORTAL?: NO Discharge plan PT LIVES AT HOME ALONE WITH HELP FROM HIS NEICE. DENIES HE WILL HAVE ANY NEEDS ON DISCHARGE. PLANS TO RETURN HOME WHEN MEDICALLY STABLE. WILL CONTINUE TO FOLLOW. WILL HAVE A RIDE HOME. . DWAYNE MCKNIGHT
--- NOTE | 2019-04-09 14:29 | NUR ---
DR MONTAGUE OFFICE CALLED AND NOTIFIED OF CONSULT
[2019-04-09 16:00] VITALS: BP 145/66
[2019-04-09 20:00] VITALS: BP 143/63
[2019-04-10 00:30] VITALS: BP 139/62
[2019-04-10 06:43] LABS: BASO % 0.6 % (0.0-1.0); EOS # 0.5 10*3/uL (0.0-0.4); EOS % 7.8 % (1.0-4.0); HEMATOCRIT 31.1 % (42.0-52.0); HEMOGLOBIN 9.9 g/dl (14.0-18.0); LYMPH % 31.9 % (27.0-41.0); MEAN CELL VOLUME 93.7 fl (80.0-94.0); MEAN CORPUSCULAR HGB 29.8 pg (27.0-31.0); MEAN CORPUSCULAR HGB CONC 31.8 g/dl (33.0-37.0); MEAN PLATELET VOLUME 10.7 fl (9.6-12.3); MONO # 0.5 10*3/uL (0.1-1.0); MONO % 7.4 % (3.0-9.0); NEUT # 3.3 10*3/uL (2.3-7.9); NEUT % 52.1 % (47.0-73.0); PLATELET COUNT AUTOMATED 250 10*3/uL (130-400); RED BLOOD COUNT 3.32 10*6/uL (4.50-5.90); RED CELL DISTRI WIDTH 13.6 % (0-14.5); WHITE BLOOD COUNT 6.4 10*3/uL (4.8-10.8)
[2019-04-10 07:12] LABS: CREATININE 2.37 mg/dL (0.70-1.30); POTASSIUM 5.6 mmol/L (3.5-5.1); TOTAL PROTEIN 6.8 gm/dL (6.4-8.2)
[2019-04-10 08:00] VITALS: BP 101/37; BP 164/67
[2019-04-10 12:00] VITALS: BP 131/58
[2019-04-10 12:06] LABS: BACTERIA TRACE; RBC 16-20 rbc/hpf (0-2); WBC TNTC wbc/hpf (0-5)
--- NOTE | 2019-04-10 15:01 | NUR ---
PT CONTINUES TO STATE HE WILL GO HOME WITH NO NEW NEEDS. WILL CONTINUE TO FOLLOW.
[2019-04-10 16:00] VITALS: BP 132/54
[2019-04-10 20:00] VITALS: BP 137/64
--- NOTE | 2019-04-10 23:02 | NUR ---
SPOKE TO SANDRA FROM ONE CALL. STILL WAITING ON A BED TO OPEN UP. MAY BE TONIGHT, MAY BE [place]. WILL CONTINUE TO MONITOR.
[2019-04-11] VITALS: BP 150/59
[2019-04-11 08:00] VITALS: BP 137/68
[2019-04-11 08:00] LABS: BASO % 0.7 % (0.0-1.0); EOS # 0.5 10*3/uL (0.0-0.4); EOS % 8.2 % (1.0-4.0); HEMATOCRIT 31.8 % (42.0-52.0); HEMOGLOBIN 9.9 g/dl (14.0-18.0); LYMPH # 1.7 10*3/uL (1.3-4.4); LYMPH % 29.6 % (27.0-41.0); MEAN CELL VOLUME 94.9 fl (80.0-94.0); MEAN CORPUSCULAR HGB 29.6 pg (27.0-31.0); MEAN CORPUSCULAR HGB CONC 31.1 g/dl (33.0-37.0); MEAN PLATELET VOLUME 11.1 fl (9.6-12.3); MONO # 0.4 10*3/uL (0.1-1.0); MONO % 6.5 % (3.0-9.0); NEUT # 3.2 10*3/uL (2.3-7.9); NEUT % 54.7 % (47.0-73.0); PLATELET COUNT AUTOMATED 260 10*3/uL (130-400); RED BLOOD COUNT 3.35 10*6/uL (4.50-5.90); RED CELL DISTRI WIDTH 13.6 % (0-14.5); WHITE BLOOD COUNT 5.9 10*3/uL (4.8-10.8)
[2019-04-11 08:06] LABS: ALBUMIN 3.1 gm/dl (3.1-4.5); CREATININE 2.39 mg/dL (0.70-1.30); POTASSIUM 5.7 mmol/L (3.5-5.1)
[2019-04-11 09:10] LABS: CREATININE,URINE 28.9 mg/dL (Not Estab.); MICRO ALBUMIN/CRE RATIO 163.3 (0.0-30.0)
--- NOTE | 2019-04-11 11:24 | NUR ---
REPORT GIVEN TO RECEIVING NURSE @ [facility]; STILL AWAITING AMBULANCE.
--- NOTE | 2019-04-11 12:15 | NUR ---
Discharge instructions reviewed with patient/family. Patient receptive and verbalizes understanding. Follow-up care arranged. Written instructions given to patient. Patient transported by [facility] ambulance to [facility] for urology consult. IV remains in place. Report was given. HARVINDER MENG
== END 2019-04-11 12:15 | disposition short-term general hospital (02) | DRG 683 ==
LOC: ED 17:36 → 5E 20:16 → EDHOLD 20:16 → 5E 21:13
PROVIDERS: Emergency Medicine; Internal Medicine Nephrology; Physician Assistant; Student in an Organized Health Care Education/Training Program; ADMIT Internal Medicine
DX: N17.0 Acute kidney failure with tubular necrosis (principal); E44.0 Moderate protein-calorie malnutrition; I13.0 Hypertensive heart and chronic kidney disease with heart failure and stage 1 through stage 4 chronic kidney disease, or unspecified chronic kidney disease; N13.6 Pyonephrosis; R73.9 Hyperglycemia, unspecified; N40.0 Benign prostatic hyperplasia without lower urinary tract symptoms; I50.9 Heart failure, unspecified; D72.819 Decreased white blood cell count, unspecified; E83.42 Hypomagnesemia; E87.8 Other disorders of electrolyte and fluid balance, not elsewhere classified; D64.9 Anemia, unspecified; E83.51 Hypocalcemia; E87.5 Hyperkalemia; E78.5 Hyperlipidemia, unspecified; I25.10 Atherosclerotic heart disease of native coronary artery without angina pectoris; N18.3 Chronic kidney disease, stage 3 (moderate); Z87.440 Personal history of urinary (tract) infections; Z87.442 Personal history of urinary calculi; Z95.5 Presence of coronary angioplasty implant and graft; Z82.49 Family history of ischemic heart disease and other diseases of the circulatory system; Z83.3 Family history of diabetes mellitus; Z86.73 Personal history of transient ischemic attack (TIA), and cerebral infarction without residual deficits; I25.2 Old myocardial infarction; Z79.899 Other long term (current) drug therapy; Z79.01 Long term (current) use of anticoagulants; Z68.20 Body mass index [BMI] 20.0-20.9, adult

== ENCOUNTER → 2019-06-13 | Outpatient (CLI) | payer MEDICARE | END | disposition home or self-care (01) | LOC: CARD 07:47 | DX: I08.3 Combined rheumatic disorders of mitral, aortic and tricuspid valves (principal); I25.10 Atherosclerotic heart disease of native coronary artery without angina pectoris; I42.9 Cardiomyopathy, unspecified ==

== ENCOUNTER → 2019-08-26 | Outpatient (CLI) | payer OTHER ==
[2019-08-26 16:27] LABS: BASO % 0.3 % (0.0-1.0); EOS # 0.2 10*3/uL (0.0-0.4); EOS % 3.8 % (1.0-4.0); HEMATOCRIT 29.1 % (42.0-52.0); LYMPH # 1.8 10*3/uL (1.3-4.4); LYMPH % 29.2 % (27.0-41.0); MEAN CELL VOLUME 92.7 fl (80.0-94.0); MEAN CORPUSCULAR HGB 29.3 pg (27.0-31.0); MEAN CORPUSCULAR HGB CONC 31.6 g/dl (33.0-37.0); MEAN PLATELET VOLUME 10.9 fl (9.6-12.3); MONO # 0.5 10*3/uL (0.1-1.0); NEUT # 3.7 10*3/uL (2.3-7.9); NEUT % 58.5 % (47.0-73.0); PLATELET COUNT AUTOMATED 169 10*3/uL (130-400); RED BLOOD COUNT 3.14 10*6/uL (4.50-5.90); RED CELL DISTRI WIDTH 14.6 % (0-14.5); WHITE BLOOD COUNT 6.2 10*3/uL (4.8-10.8)
[2019-08-26 16:40] LABS: INTERNATIONAL NORM RATIO 2.4 (2.0-3.5)
== END | disposition home or self-care (01) ==
LOC: LAB 15:53
PROVIDERS: Specialist
DX: I48.91 Unspecified atrial fibrillation (principal); Z79.01 Long term (current) use of anticoagulants

== ENCOUNTER → 2019-09-16 | Outpatient (CLI) | payer MEDICARE | END | disposition home or self-care (01) | LOC: RAD 07:35 | DX: M47.812 Spondylosis without myelopathy or radiculopathy, cervical region (principal); M48.02 Spinal stenosis, cervical region ==

== ENCOUNTER → 2019-09-23 | Outpatient (CLI) | payer MEDICARE ==
[2019-09-23 14:13] LABS: BASO % 0.6 % (0.0-1.0); EOS # 0.2 10*3/uL (0.0-0.4); EOS % 3.7 % (1.0-4.0); HEMATOCRIT 25.6 % (42.0-52.0); LYMPH # 1.8 10*3/uL (1.3-4.4); LYMPH % 27.7 % (27.0-41.0); MEAN CELL VOLUME 88.9 fl (80.0-94.0); MEAN CORPUSCULAR HGB 28.5 pg (27.0-31.0); MEAN PLATELET VOLUME 9.5 fl (9.6-12.3); MONO # 0.5 10*3/uL (0.1-1.0); MONO % 7.9 % (3.0-9.0); NEUT # 3.9 10*3/uL (2.3-7.9); NEUT % 59.5 % (47.0-73.0); PLATELET COUNT AUTOMATED 263 10*3/uL (130-400); RED BLOOD COUNT 2.88 10*6/uL (4.50-5.90); RED CELL DISTRI WIDTH 13.9 % (0-14.5); WHITE BLOOD COUNT 6.5 10*3/uL (4.8-10.8)
[2019-09-23 14:24] LABS: CREATININE 1.87 mg/dL (0.70-1.30); POTASSIUM 3.7 mmol/L (3.5-5.1)
== END | disposition home or self-care (01) ==
LOC: LAB 13:47
PROVIDERS: Urology
DX: Z01.818 Encounter for other preprocedural examination (principal); I21.09 ST elevation (STEMI) myocardial infarction involving other coronary artery of anterior wall; N40.1 Benign prostatic hyperplasia with lower urinary tract symptoms; N18.3 Chronic kidney disease, stage 3 (moderate)

== ENCOUNTER → 2020-02-06 | Outpatient (CLI) | payer MEDICARE | END | disposition home or self-care (01) | LOC: US 14:58 | PROVIDERS: ATTEND Urology | DX: N13.4 Hydroureter (principal); N13.30 Unspecified hydronephrosis; N28.1 Cyst of kidney, acquired; R73.03 Prediabetes ==

== ENCOUNTER → 2020-03-01 | Outpatient (CLI) | payer MEDICARE ==
[2020-03-01 15:24] LABS: BASO % 0.7 % (0.0-1.0); BILIRUBIN Negative (Negative); BLOOD 1+ (Negative); CLARITY Turbid (Clear); COLOR Yellow (Yellow); EOS # 0.2 10*3/uL (0.0-0.4); EOS % 3.6 % (1.0-4.0); GLUCOSE Negative (Negative); HEMATOCRIT 29.5 % (42.0-52.0); KETONE Negative (Negative); LEUKO ESTERASE 3+ (Negative); LYMPH # 1.6 10*3/uL (1.3-4.4); LYMPH % 36.5 % (27.0-41.0); MEAN CELL VOLUME 93.7 fl (80.0-94.0); MEAN CORPUSCULAR HGB 28.9 pg (27.0-31.0); MEAN CORPUSCULAR HGB CONC 30.8 g/dl (33.0-37.0); MEAN PLATELET VOLUME 10.4 fl (9.6-12.3); MONO # 0.3 10*3/uL (0.1-1.0); MONO % 7.5 % (3.0-9.0); NEUT # 2.3 10*3/uL (2.3-7.9); NEUT % 51.2 % (47.0-73.0); NITRITE Positive (Negative); PLATELET COUNT AUTOMATED 228 10*3/uL (130-400); RED BLOOD COUNT 3.15 10*6/uL (4.50-5.90); RED CELL DISTRI WIDTH 14.6 % (0-14.5); SPECIFIC GRAVITY 1.015 (1.001-1.030); UROBILINOGEN 0.2 E.U./dl (0.0-1.0); WHITE BLOOD COUNT 4.4 10*3/uL (4.8-10.8)
[2020-03-01 15:41] LABS: WBC TNTC wbc/hpf (0-5)
[2020-03-01 15:44] LABS: URINE CREATININE RANDOM 56.1 mg/dL
[2020-03-01 15:56] LABS: ALBUMIN 3.1 gm/dl (3.1-4.5); CREATININE 2.52 mg/dL (0.70-1.30); POTASSIUM 4.7 mmol/L (3.5-5.1); URIC ACID 6.9 mg/dL (3.5-7.2)
[2020-03-01 16:08] LABS: VITAMIN D, 25-HYDROXY 59.3 ng/mL (30-100)
== END | disposition home or self-care (01) ==
LOC: LAB 14:44
PROVIDERS: ATTEND Internal Medicine Nephrology
DX: N18.4 Chronic kidney disease, stage 4 (severe) (principal); D63.1 Anemia in chronic kidney disease; N25.81 Secondary hyperparathyroidism of renal origin; Z87.442 Personal history of urinary calculi; Z79.899 Other long term (current) drug therapy

== ENCOUNTER → 2020-08-13 | Outpatient (CLI) | payer MEDICARE | END | disposition home or self-care (01) | LOC: CARD | PROVIDERS: ATTEND Internal Medicine Cardiovascular Disease | DX: Z01.818 Encounter for other preprocedural examination (principal); I25.10 Atherosclerotic heart disease of native coronary artery without angina pectoris; I10 Essential (primary) hypertension ==

== ENCOUNTER 2021-09-04 07:09 | Emergency (ER) | payer MEDICARE ==
[~2021-09-04] VITALS: Wt 54.0 kg
[2021-09-04 07:20] VITALS: BP 158/105
[2021-09-04 07:41] LABS: BILIRUBIN Negative (Negative); BLOOD 2+ (Negative); CLARITY Turbid (Clear); COLOR Yellow (Yellow); GLUCOSE Negative (Negative); KETONE Negative (Negative); LEUKO ESTERASE 3+ (Negative); NITRITE Negative (Negative); PH 5.5 (4.5-8.0); UROBILINOGEN 0.2 E.U./dl (0.0-1.0)
[2021-09-04 07:52] LABS: WBC TNTC wbc/hpf (0-5)
== END 2021-09-04 08:10 | disposition home or self-care (01) ==
LOC: ED 07:09
PROVIDERS: Student in an Organized Health Care Education/Training Program
DX: R33.9 Retention of urine, unspecified (principal); Z79.899 Other long term (current) drug therapy; Z98.890 Other specified postprocedural states

== ENCOUNTER 2021-10-08 20:35 | Emergency (ER) | payer MEDICARE ==
[2021-10-09 01:22] VITALS: BP 128/56
== END 2021-10-09 01:45 | disposition short-term general hospital (02) ==
LOC: ED 20:35
DX: S22.41XA Multiple fractures of ribs, right side, initial encounter for closed fracture (principal); S09.90XA Unspecified injury of head, initial encounter; J18.9 Pneumonia, unspecified organism; Z79.899 Other long term (current) drug therapy; Z98.890 Other specified postprocedural states; W10.8XXA Fall (on) (from) other stairs and steps, initial encounter; Y93.89 Activity, other specified; Y92.89 Other specified places as the place of occurrence of the external cause; Y99.8 Other external cause status

== ENCOUNTER 2021-11-14 07:46 | Emergency (ER) | payer MEDICARE ==
[~2021-11-14] VITALS: Wt 51.3 kg
[2021-11-14 08:00] VITALS: BP 114/60
== END 2021-11-14 09:36 | disposition home or self-care (01) ==
LOC: ED 07:46
DX: T83.098A Other mechanical complication of other urinary catheter, initial encounter (principal); R33.9 Retention of urine, unspecified; Z98.890 Other specified postprocedural states; Z79.899 Other long term (current) drug therapy; Z79.01 Long term (current) use of anticoagulants; Y92.89 Other specified places as the place of occurrence of the external cause

== ENCOUNTER 2021-11-29 14:26 | Emergency (ER) | payer MEDICARE ==
[~2021-11-29] VITALS: Ht 165.1 cm; Wt 54.0 kg
[2021-11-29 14:45] VITALS: BP 138/94
[2021-11-29 15:46] LABS: BILIRUBIN Negative (Negative); BLOOD 1+ (Negative); CLARITY Clear (Clear); COLOR Yellow (Yellow); GLUCOSE Negative (Negative); KETONE Negative (Negative); LEUKO ESTERASE 3+ (Negative); NITRITE Negative (Negative); PH 6.5 (4.5-8.0); SPECIFIC GRAVITY <= 1.005 (1.001-1.030); UROBILINOGEN 0.2 E.U./dl (0.0-1.0)
[2021-11-29 15:59] LABS: BACTERIA TRACE; EPITHELIAL CELLS 0-2; WBC TNTC wbc/hpf (0-5)
== END 2021-11-29 17:28 | disposition home or self-care (01) ==
LOC: ED 14:26
PROVIDERS: Physician Assistant
DX: R33.9 Retention of urine, unspecified (principal); N39.0 Urinary tract infection, site not specified; Z79.899 Other long term (current) drug therapy; Z98.890 Other specified postprocedural states

== ENCOUNTER 2021-11-29 22:20 | Emergency (ER) | payer MEDICARE ==
[~2021-11-29] VITALS: Ht 152.4 cm; Wt 54.0 kg
[2021-11-29 23:24] VITALS: BP 118/68
== END 2021-11-30 03:51 | disposition home or self-care (01) ==
LOC: ED 22:20
DX: T83.038A Leakage of other urinary catheter, initial encounter (principal); Y92.89 Other specified places as the place of occurrence of the external cause

== ENCOUNTER 2021-12-07 15:23 | Emergency (ER) | payer MEDICARE ==
[2021-12-07 15:46] VITALS: BP 122/53
== END 2021-12-07 17:09 | disposition home or self-care (01) ==
LOC: ED 15:23
DX: T83.098A Other mechanical complication of other urinary catheter, initial encounter (principal); Z79.899 Other long term (current) drug therapy; Z98.890 Other specified postprocedural states; Y92.89 Other specified places as the place of occurrence of the external cause

== ENCOUNTER 2022-06-12 07:19 | Emergency (ER) | payer MEDICARE ==
[2022-06-12 07:26] VITALS: BP 96/51
== END 2022-06-12 07:41 | disposition home or self-care (01) ==
LOC: ED 07:19
DX: T83.031A Leakage of indwelling urethral catheter, initial encounter (principal); Z98.890 Other specified postprocedural states; Y84.8 Other medical procedures as the cause of abnormal reaction of the patient, or of later complication, without mention of misadventure at the time of the procedure; Y92.89 Other specified places as the place of occurrence of the external cause

== ENCOUNTER → 2022-08-25 | Outpatient (CLI) | payer MEDICARE ==
[~2022-08-25] MED LIST changes: +ACETAMINOPHEN325 M2 PO; +AMLODIPINE BESYL5 MG PO; +ASPIRIN ADULT L81 M2 PO; +FINASTERIDE5 M1 PO; +VITAMIN D350 MC2 PO
== END | disposition home or self-care (01) ==
LOC: ORTHO 01:09
PROVIDERS: ATTEND Orthopaedic Surgery
DX: S72.142D Displaced intertrochanteric fracture of left femur, subsequent encounter for closed fracture with routine healing (principal); X58.XXXD Exposure to other specified factors, subsequent encounter